=== PATIENT | male | born 1970 | race African-American/Black ===

== ENCOUNTER 2016-12-20 12:07 | Emergency (ER) | payer MEDICAID, MEDICARE ==
[2016-12-20 12:08] VITALS: BP 182/111; PULSE 96; RESP 20; TEMP 98.6; O2SAT 96
--- NOTE | 2016-12-20 12:40 | PD ---
Physical Exam Date Seen by Provider: December 20, 2016 Time Seen by Provider: 12:37 Narrative 46 y/o fell yesterday while [place], and injured Right Hip. Pain worse this AM. No numbness or tingling. No Weakness. No other complaints. Pain in Right Hip a 6/10. Tried Advil and Heating pad with some improvement. Ambulating with Limp. NKDA. V/S Stable Awaiting Bed Placement. Data Data Last Documented VS Vital Signs Date Time Temp Pulse Resp B/P Pulse Ox O2 Delivery O2 Flow Rate FiO2 12/20/16 12:08 98.6 96 20 182/111 96 Room Air [facility] Medical Record Reviewed: Yes Supervised Visit with EMILE: Yes Condition: Stable Dawit Childs December 20, 2016 12:40
--- NOTE | 2016-12-20 12:53 | PD ---
HPI Chief Complaint: Hip Injury Time Seen by Provider: 12:53 Travel History International Travel<30 days: No Contact w/Intl Traveler<30days: No Traveled to known affect area: No History of Present Illness HPI 46-year-old male presents to the emergency Department with complaint of right hip pain after tripping over an uneven gravestone yesterday and hitting his right hip on another gravestone. He denies hitting his head or loss of consciousness. Reports worsening of pain today. Has tried Advil and heating pad to the affected area with some relief. Denies paresthesias, loss of sensation, decreased range of motion, decreased strength to the affected extremity. Reports being ambulatory in the affected extremity with a limp. Denies bruising or swelling to the affected area. Has no other medical complaints. No known allergies. No other modifying factors or associated signs and symptoms. PFSH Social History Tobacco Use: No Allergies-Medications (Allergen,Severity, Reaction): Coded Allergies: No Known Allergies (Unverified , 12/20/16) Reported Meds & Prescriptions Reported Meds & Active Scripts Active Ibuprofen 800 Mg Tab 800 Mg PO Q6HR PRN Reported Vitamin A 8,000 Unit Cap 8,000 Units PO DAILY Review of Systems Except as stated in HPI: all other systems reviewed are Neg Physical Exam Narrative GENERAL: Well-nourished, well-developed male patient, in no acute distress SKIN: Warm and dry. HEAD: Atraumatic. Normocephalic. EYES: Pupils equal and round. No scleral icterus. No injection or drainage. ENT: Mucosa pink and moist. Airway patent. NECK: Trachea midline. CARDIOVASCULAR: Regular rate. RESPIRATORY: No accessory muscle use. GASTROINTESTINAL: Rounded. MUSCULOSKELETAL: Right hip with full range of motion; without erythema, edema, ecchymosis; with tenderness on palpation; minimal tenderness on abduction; no obvious deformity; no leg length discrepancy. Right lower extremity supple and non-tense 2+ pedal pulse and sensory intact without erythema or edema. Patient ambulatory in the room with a limp to the right lower extremity. No obvious deformities. No cyanosis. No edema. NEUROLOGICAL: Awake and alert. Oriented 3. No obvious cranial nerve deficits. Motor grossly within normal limits. Normal speech. PSYCHIATRIC: Appropriate mood and affect; insight and judgment normal. Data Data Last Documented VS Vital Signs Date Time Temp Pulse Resp B/P Pulse Ox O2 Delivery O2 Flow Rate FiO2 12/20/16 12:08 98.6 96 20 182/111 96 Room Air Orders Hip, Uni(Ap&Lat) W Ap Pelvis (12/20/16 12:53) Ibuprofen (Motrin) (12/20/16 13:00) Crutches (12/20/16 12:53) MDM Medical Decision Making Medical Screen Exam Complete: Yes Emergency Medical Condition: Yes Medical Record Reviewed: Yes Differential Diagnosis Hip contusion, hip fracture, pelvic fracture Narrative Course 46-year-old male with right hip injury. Ibuprofen administered in the ER. Crutches ordered. Right hip with AP pelvic x-ray ordered. 1410: Right hip with AP pelvis x-ray with no acute findings. Crutches provided for support. Ibuprofen prescribed for home. Patient verbalizes understanding and agreement with treatment plan. Patient is medically cleared and stable for discharge. Discussed reasons to return to the emergency department. Instructed patient to follow up with primary care provider. Patient agrees with treatment plan. The patients vital signs are stable and the patient is stable for outpatient follow-up and treatment. Patient discharged home, stable and in no acute distress. Diagnosis Primary Impression: Contusion of right hip Qualified Code: S70.01XA - Contusion of right hip, initial encounter Referrals: Primary Care Physician Patient Instructions: Crutch Instructions (ED), General Instructions, Hip Contusion (ED) Departure Forms: Tests/Procedures, Work Release Enter return to work date: December 24, 2016 Additional Instructions: Tylenol/ibuprofen every 6 hours as directed and as needed for pain Rest, ice, compress, and elevate extremity to decrease pain and inflammation Crutches for support Avoid aggravating activity; increase activity as tolerated Follow-up with primary care provider Return to the emergency department immediately with worsening symptoms Med/Other Pt SpecificInfo: Prescription(s) given Scripts Ibuprofen 800 Mg [id number] Mg PO Q6HR PRN (PAIN) #30 TAB Ref 0 Prov:Skye Robertson 12/20/16 Disposition: 01 DISCHARGE HOME Condition: Stable Skye Robertson December 20, 2016 12:53 Skye Robertson December 20, 2016 12:53
[2016-12-20] MEDS ORDERED: IBUPROFEN 800 MG TAB PO ONE (13:00)
[2016-12-20] MEDS ORDERED: IBUP800T23 PO (13:03)
[2016-12-20] MEDS ORDERED: VITA8000 PO (13:11)
--- NOTE | 2016-12-20 13:59 | RADRPT ---
EXAM DATE/TIME: 12/20/2016 13:42 [facility] COMPARISON: No previous studies available for comparison. INDICATIONS : Fell on right hip yesterday, pain right hip MEDICAL HISTORY : None. SURGICAL HISTORY : None. ENCOUNTER: Initial ACUITY: 2 days PAIN SCORE: 5/10 LOCATION: Right hip FINDINGS: Examination of the right hip was performed with AP Pelvis. The primary and secondary trabecular laura melia of the femoral neck is intact. The hip joint is of normal width without significant sclerosis or bony hypertrophy. The acetabulum is grossly intact. CONCLUSION: Normal examination for a patient of this age. No acute fracture or joint dislocation. Shady Mijares MD on December 20, 2016 at 13:56 Board Certified Radiologist. This report was verified electronically.
== END 2016-12-20 14:43 | disposition home or self-care (01) ==
LOC: NEPK 12:07
DX: S70.01XA Contusion of right hip, initial encounter (principal); W18.09XA Striking against other object with subsequent fall, initial encounter; Y92.89 Other specified places as the place of occurrence of the external cause
CPT/HCPCS: 73502; 99283; E0113